=== PATIENT | female | born 1950 | race American Indian/Alaskan Native ===

== ENCOUNTER 2019-06-14 18:19 | Emergency (ER) | payer MEDICARE ==
--- NOTE | 2019-06-14 20:46 | XRay Report ---
SUPINE ABDOMEN 2 VIEWS INDICATION: feeding tube placement. COMPARISON: No relevant prior imaging study available. FINDINGS: On the first image, gastrostomy projects in expected position. The second image, 5 minutes after inst illation of contrast, contrast is noted within the stomach and small bowel confirming position. No co ntrast is seen outside the lumen of the GI tract. IMPRESSION: 1. Gastrostomy is in satisfactory position. Signer Name: Wero Byers MD Signed: 06/14/2019 8:42 PM Workstation Name: [id number]
--- NOTE | 2019-06-14 20:49 | Emergency Department Report ---
ED General Adult HPI - General Chief complaint: Tube Replacement Stated complaint: PEG TUBE REPLACEMENT Time Seen by Provider: 06/14/19 19:24 Source: EMS Mode of arrival: Stretcher Limitations: Altered Mental Status, Physical Limitation - History of Present Illness Initial comments: The patient presents to the emergency department for admission with a feeding tube. Patient is nonverbal so not able to obtain a history from the patient. Per EMS the patient hasn't dislodged feeding tube. -: unknown Improves with: none Worsens with: none Associated Symptoms: denies other symptoms Treatments Prior to Arrival: none - Related Data Allergies Allergy/AdvReac Type Severity Reaction Status Date / Time No Known Allergies Allergy Unverified 06/14/19 18:45 ED Review of Systems ROS: Stated complaint: PEG TUBE REPLACEMENT Other details as noted in HPI Comment: Unobtainable due to pts medical conditions ED Past Medical Hx - Past Medical History Previous Medical History?: Yes Hx Hypertension: Yes Hx CVA: Yes Hx Diabetes: Yes Hx Seizures: Yes - Social History Smoking Status: Unknown if ever smoked Substance Use Type: None ED Physical Exam - General Limitations: Physical Limitation General appearance: in no apparent distress - Head Head exam: Present: atraumatic, normocephalic - Eye Eye exam: Present: normal appearance, PERRL, EOMI - ENT ENT exam: Present: mucous membranes dry - Neck Neck exam: Present: normal inspection - Respiratory Respiratory exam: Present: normal lung sounds bilaterally. Absent: respiratory distress - Cardiovascular Cardiovascular Exam: Present: regular rate, normal rhythm - GI/Abdominal GI/Abdominal exam: Present: soft, other (feeding tube present, euceda tightened, gastric content obtained from tube with syringe). Absent: distended, tenderness - Neurological Exam Neurological exam: Present: other (not able to assess due to the patient's pre- existing medical condition) - Psychiatric Psychiatric exam: Present: other (not able to assess due to the patient's pre- existing medical conditions) - Skin Skin exam: Present: warm, dry, intact, normal color ED Course Vital Signs 06/14/19 18:42 Temperature 98.5 F Pulse Rate 85 Respiratory 18 Rate Blood Pressure 153/90 O2 Sat by Pulse 98 Oximetry ED Medical Decision Making - Radiology Data Radiology results: report reviewed - Medical Decision Making G-tube study done and is in appropriate position thus tube did not need to be replaced Critical care attestation.: If time is entered above; I have spent that time in minutes in the direct care of this critically ill patient, excluding procedure time. ED Disposition Clinical Impression: Feeding tube dysfunction Disposition: - TO HOME OR SELFCARE Is pt being admited?: No Does the pt Need Aspirin: No Condition: Stable Instructions: Tube Feeding (ED) Additional Instructions: return if worse Referrals: [facility] [Provider Group] - 3-5 Days [facility] [Provider Group] - 3-5 Days Time of Disposition: 20:53
[2019-06-14 22:56] VITALS: BP 154/79
== END 2019-06-15 00:30 | disposition home or self-care (01) ==
LOC: ED 18:19
DX: K94.23 Gastrostomy malfunction (principal); I10 Essential (primary) hypertension; Z86.73 Personal history of transient ischemic attack (TIA), and cerebral infarction without residual deficits; E11.9 Type 2 diabetes mellitus without complications
CPT/HCPCS: 43762; 74018; 99283; Q9963